=== PATIENT | male | born 1980 | race Two or more races ===

== ENCOUNTER 2020-09-16 21:57 | Emergency (ER) | payer OTHER ==
[~2020-09-16] VITALS: Ht 154.9 cm; Wt 83.9 kg
[2020-09-16] MEDS ORDERED: HYDROXYZINE (22:12)
[2020-09-16] MEDS ORDERED: SULFASALAZINE500 MG (22:14)
[2020-09-17] MEDS ORDERED: ZOFRAN8 MG PO (02:33)
[2020-09-17] MEDS ORDERED: DOLOGESIC 500-1 EACH PO (02:33)
[2020-09-17] MEDS ORDERED: PEPCID40 MG PO (02:33)
== END 2020-09-17 02:54 | disposition home or self-care (01) ==
LOC: ER 21:57
DX: A90 Dengue fever [classical dengue] (principal); Z03.818 Encounter for observation for suspected exposure to other biological agents ruled out

== ENCOUNTER 2024-01-16 01:14 | Emergency (ER) | payer OTHER ==
[~2024-01-16] VITALS: Ht 185.4 cm; Wt 86.2 kg
[~2024-01-16 01:14] MED LIST: DOLOGESIC 500-1 EACH PO; HYDROXYZINE; PEPCID40 MG PO; SULFASALAZINE500 MG; ZOFRAN8 MG PO
[2024-01-16] MEDS ORDERED: AMLODIPINE-OLM1 EAC2 PO (01:27)
[2024-01-16] MEDS ORDERED: TRAZODONE HCL150 MG PO (01:28)
[2024-01-16] MEDS ORDERED: TRUVADA 200 MG1 EACH PO (01:28)
[2024-01-16] MEDS ORDERED: KETOROLAC TROMETHAMINE 30 MG VIAL IV STA (02:30)
[2024-01-16] MEDS ORDERED: PROMETHAZINE HCL 50 MG/ML AMPUL IM STA (02:30)
[2024-01-16] MEDS ORDERED: 0.9 % SODIUM CHLORIDE 1,000 ML IV ONE (02:30)
[2024-01-16] MEDS ORDERED: FAMOTIDINE/PF 20 MG/2 ML VIAL IV PUSH STA (02:30)
[2024-01-16 03:08] LABS: HEMOGLOBIN 14.8 g/dL (13-16.00); MEAN CELL VOLUME 86.9 fL (80.0-100.00); MEAN CORPUSCULAR HEMOGLOBIN 30.6 pg (27.00-32.0); MEAN CORPUSCULAR HGB CONC 35.2 g/dl (32.0-36.0); PLATELET COUNT 259 K/uL (150-450); RED BLOOD COUNT 4.84 M/uL (4.00-6.00); RED CELL DISTRIBUTION WIDTH 15.7 % (11.5-14.5)
[2024-01-16 03:29] LABS: CALCIUM 9.1 mg/dL (8.5-10.1); CREATININE SERUM 1.11 mg/dL (0.70-1.30); GFR 72.3; POTASSIUM 3.43 mEq/L (3.5-5.1)
[2024-01-16 05:27] LABS: URINE APPEARANCE Clear; URINE BILIRRUBIN Negative (NEGATIVE); URINE BLOOD Negative; URINE COLOR Yellow; URINE GLUCOSE Negative (NEGATIVE); URINE LEUKOCYTE Negative; URINE NITRATE Negative; URINE PROTEIN Negative (NEGATIVE); URINE UROBILINOGEN 0.2 E.U./dl
[2024-01-16 05:28] LABS: URINE BACTERIA 35.2 uL (0.0-1933); URINE RBC 2.7 uL (0.0-20.8)
[2024-01-16 05:46] LABS: URINE EPITHELIAL CELLS 0.4 uL (0.0-38.8); URINE WBC 1.2 uL (0.0-23.2)
[2024-01-16] MEDS ORDERED: ONDANSETRON ODT8 MG PO (07:06)
[2024-01-16] MEDS ORDERED: DOLOGESIC-DF 51 EACH PO (07:06)
== END 2024-01-16 07:15 ==
LOC: ER 01:14
PROVIDERS: General Practice
DX: R53.81 Other malaise (principal); Z20.822 Contact with and (suspected) exposure to COVID-19